=== PATIENT | female | born 1990 | race Caucasian/White ===

== ENCOUNTER 2022-03-26 14:04 | Outpatient (REF) | payer OTHER, SELFPAY ==
--- NOTE | ~2022-03-26 | XR_ITS ---
EXAMINATION: XR FOOT, RIGHT CLINICAL INFORMATION: Pain in right foot Dorsal right foot pain, no injury COMPARISON: None TECHNIQUE: AP, lateral, and oblique views of the right foot. FINDINGS: There is mild soft tissue swelling of the dorsum of the foot. The bones are intact. No fracture. Alignment is anatomic. Joint spaces are maintained. XR/XR foot RT 2V IMPRESSION: No bony abnormality.
== END 2022-03-26 14:05 | disposition home or self-care (01) ==
LOC: HO.XRAY 14:04
PROVIDERS: PCP Internal Medicine; Visit Provider Internal Medicine
DX: M79.671 Pain in right foot (principal)
CPT/HCPCS: 73620

== ENCOUNTER 2022-11-24 09:14 | Outpatient (REF) | payer OTHER, SELFPAY ==
[2022-11-24 12:47] LABS: Influenza A PCR NEGATIVE (Negative); Influenza B PCR NEGATIVE (Negative); Resp Syncy Virus RNA Qual PCR NEGATIVE (Negative); SARS COV2 PCR INHOUSE NEGATIVE (Negative)
== END 2022-11-24 09:15 | disposition home or self-care (01) ==
LOC: HO.LAB 09:14
PROVIDERS: Visit Provider Nurse Practitioner Family
DX: Z20.822 Contact with and (suspected) exposure to COVID-19 (principal); R09.89 Other specified symptoms and signs involving the circulatory and respiratory systems
CPT/HCPCS: 0241U

== ENCOUNTER 2023-07-17 00:30 | Emergency (ER) | payer OTHER, SELFPAY ==
--- NOTE | ~2023-07-17 | XR_ITS ---
EXAMINATION: XR PORTABLE CHEST CLINICAL INFORMATION: Rule out pneumonia COMPARISON: None. TECHNIQUE: AP portable upright view of the chest FINDINGS: Lungs are clear. No consolidation, pneumothorax, or pleural effusion. Cardiac and mediastinal contours are normal. Pulmonary vasculature is unremarkable. Osseous structures are unremarkable. XR/XR chest 1V IMPRESSION: No acute cardiopulmonary findings
[2023-07-17 00:33] VITALS: BP 143/94; PULSE 103; RESP 19; TEMP 36.2; O2SAT 99; BMI 38.7
[2023-07-17 00:58] LABS: IDNOW Serial# 6674DD1D; Strep A Nucleic Acid Negative (Negative)
--- NOTE | 2023-07-17 01:22 | ED.URI ---
HPI - URI/Sore Throat General Chief Complaint: Upper Respiratory Symptoms Stated Complaint: difficulty breathing, coughing Time Seen by Provider: 07/17/23 01:16 Source: patient Mode of arrival: ambulatory Limitations: no limitations History of Present Illness HPI Narrative: Patient comes to the emergency room complaining of URI and cough for about a week. Patient states that the cough got much worse today. Patient complaining now of sore throat. Patient denies fever or chills. Related Data Previous Rx's Medication Instructions Recorded amoxicillin 875 mg-potassium 1 tab PO Q12H 7 days #14 tabs 11/24/22 clavulanate 125 mg tablet benzonatate 100 mg capsule 100 mg PO TID PRN cough #20 caps 11/24/22 prednisone 20 mg tablet 40 mg (2 x 20 mg) PO DAILY 5 days 11/24/22 #10 tabs acetaminophen 500 mg tablet 500 mg PO Q6H PRN fever or pain 07/17/23 #20 tabs benzonatate 100 mg capsule 100 mg PO TID PRN cough #10 caps 07/17/23 ibuprofen 600 mg tablet 600 mg PO TID PRN fever or pain 07/17/23 #20 tabs Allergies Allergy/AdvReac Type Severity Reaction Status Date / Time sulfamethoxazole Allergy Mild hives Verified 11/24/22 08:41 [From Bactrim] trimethoprim [From Bactrim] Allergy Mild hives Verified 11/24/22 08:41 Review of Systems Review of Systems: Constitutional : No Weight loss, No Fever, No Chills, No Night Sweats, No Fatigue, No Malaise ENT/Mouth : No Hearing loss, No Ear Pain, No Nasal Congestion, No Sinus Pain, No Hoarseness, complaining of sore throat, No Rhinorrhea, No Swallowing Difficulty Eyes: No Eye Pain, No Swelling, No Redness, No Foreign Body, No Discharge, No Vision Changes Cardiovascular : No Chest Pain, No SOB, No Dyspnea on Exertion, No Orthopnea, No Edema, No Palpitations Respiratory : Complaining of worsening dry cough, No Wheezing, No Smoke Exposure, No Dyspnea Gastrointestinal : No Nausea, No Vomiting, No Diarrhea, No Constipation, No abdominal Pain, No Hematochezia, No Melena Genitourinary : no irregular bleeding, No Dysuria, No Urinary Frequency, No Hematuria, No Urinary Incontinence, No Urgency, No Flank Pain, No Urinary Flow Changes, No Hesitancy Musculoskeletal : No joint pain, No Myalgias, No Joint Swelling Skin : No Skin Lesions, No rash Neuro : No Weakness, No Numbness, No Paresthesias, No Loss of Consciousness, No Dizziness, No Headache Psych : No Anxiety/Panic, No Depression, No SI/HI/AH/VH, No Social Issues, Heme/Lymph: No Bruising, No Bleeding,No Lymphadenopathy Endocrine : No Polyuria, No Polydipsia, No Temperature Intolerance PMFSH Past Medical History Onset Date is defined in the Problem List Problems that require an onset date and time if occurred within 24 hrs of arrival to the ED Aortic Dissection and Rupture; Neurologic impairment; Cardiopulmonary Arrest; Endotracheal Intubation; Insertion or Replacement of Mechanical Circulatory Assist Device Medical History Obesity (BMI 30-39.9) Generalized anxiety disorder Physical exam Family History Family History Mother No problems noted. Social History Social History Housing: Apartment Alcohol intake: current Patient Tobacco Use Status: Former Tobacco user Tobacco use type: Cigarette Years Smoked: quit 2020 e-Cigarette/Vaping Use: Never Used Second Hand Smoke Exposure: No Advance Directives: No Advance Directives Information Provided: Yes Current occupational status: unemployed Cognitive needs: No Hearing needs: No Vision needs: No Physical Exam Vital Signs: Vital Signs: Last Vital Signs Temp 97.1 F 07/17/23 00:33 Pulse 103 H 07/17/23 00:33 Resp 19 07/17/23 00:33 BP 143/94 H 07/17/23 00:33 Pulse Ox 99 07/17/23 00:33 O2 Del Method Room Air 07/17/23 00:33 BMI result Body Mass Index 38.7 Const: Other: Appearance: Alert. Oriented X3. No acute distress. Eyes: Pupils equal, round and reactive to light. ENT: Pharynx normal. Neck: Normal inspection. Neck supple. No lymph nodes noted. No crepitus CVS: Normal heart rate and rhythm. Pulses normal. Normal S1 and S2 Respiratory: No respiratory distress. Breath sounds normal. No Wheezing. No rales actively coughing, dry Abdomen: Soft and nontender. No rigidity. No distention. Skin: Skin warm and dry. Normal skin color. Normal skin turgor. Extremities: No lower extremity edema. No Lacerations. No Rash Neuro: Oriented X 3. No motor deficit. No sensory deficit. Moving all extremities. No slurred speech. CN 2 through 12 grossly intact Psych: calm, cooperative, normal affect Medical Decision Making Medical Decision Making [facility] Narrative: -for symptomatic relief, patient was given p.o. Tessalon Perles, p.o. Decadron and viscous lidocaine -my interpretation of labs: Strep test negative, negative for influenza, positive for COVID -my interpretation of chest x-ray, no infiltrates. Radiology report not available yet -patient has been symptomatic for approximately 1 week, patient is outside of the treatment for Paxlovid Differential Diagnosis Differential Diagnoses: The differential diagnosis associated with the presentation includes (Bronchitis, COVID, influenza, viral URI) Lab Data [facility] Lab Attestation statement: I reviewed the patient's lab results. Labs: Lab Results 07/17/23 Range/Units 00:41 Influenza Type A (PCR) NEGATIVE (Negative) Influenza Type B (PCR) NEGATIVE (Negative) RSV RNA Qual (PCR) NEGATIVE (Negative) SARS-CoV-2 RNA (RT-PCR) POSITIVE A (Negative) S. pyogenes GrpA MAINE Negative (Negative) Independent Interpretation I performed an independent interpretation of an: Plain X-Ray Discharge Plan Discharge Clinical Impression: COVID-19 Patient Disposition: Home, Self-Care Instructions: COVID-19 (Coronavirus Disease 2019) (ED) Additional Instructions: Please follow-up with your primary care physician tomorrow. If you have any worsening or new symptoms, please return to the emergency room or call 911 Prescriptions: New ibuprofen 600 mg tablet 600 mg PO TID PRN (Reason: fever or pain) Qty: 20 0RF acetaminophen 500 mg tablet 500 mg PO Q6H PRN (Reason: fever or pain) Qty: 20 0RF benzonatate 100 mg capsule 100 mg PO TID PRN (Reason: cough) Qty: 10 0RF No Action amoxicillin-pot clavulanate 875-125 mg tablet 1 tab PO Q12H 7 Days Qty: 14 0RF benzonatate 100 mg capsule 100 mg PO TID PRN (Reason: cough) Qty: 20 0RF prednisone 20 mg tablet 40 mg PO DAILY 5 Days Qty: 10 0RF
[2023-07-17 01:25] LABS: Influenza A PCR NEGATIVE (Negative); Influenza B PCR NEGATIVE (Negative); Resp Syncy Virus RNA Qual PCR NEGATIVE (Negative); SARS COV2 PCR INHOUSE POSITIVE (Negative)
[2023-07-17] MEDS: dexAMETHasone sod phosphate 4 MG/ML VIAL 6 MG IVPUSH (02:14)
[2023-07-17] MEDS: Benzonatate 100 MG CAPSULE PO (02:14)
[2023-07-17] MEDS: Lidocaine HCl Viscous 2 % 15 ML SOLUTION MUCOUS MEM (02:14)
== END 2023-07-17 03:00 | disposition home or self-care (01) ==
PROVIDERS: Emergency Provider Emergency Medicine
DX: U07.1 COVID-19 (principal); R06.02 Shortness of breath; R05.9 Cough, unspecified; Z79.899 Other long term (current) drug therapy
CPT/HCPCS: 0241U; 71045; 87651; 99282; 99283; J1100

== ENCOUNTER 2023-10-05 23:33 | Emergency (ER) | payer OTHER, SELFPAY ==
--- NOTE | ~2023-10-05 | XR_ITS ---
EXAMINATION: XR CHEST CLINICAL INFORMATION: Dyspnea. COMPARISON: Chest radiograph 07/17/2023. TECHNIQUE: 2 views of the chest were obtained. FINDINGS: Normal appearance of the cardiomediastinal silhouette. No focal airspace opacities, pleural effusion or pneumothorax. No pulmonary edema. No acute osseous findings. Visualized upper abdomen is within normal limits. XR/XR chest 2V IMPRESSION: No acute cardiopulmonary findings.
[2023-10-06] VITALS: BP 119/79; PULSE 95; RESP 18; TEMP 37.6; O2SAT 97; BMI 37.8
[2023-10-06 00:30] LABS: IDNOW Serial# 6674DD1D; Strep A Nucleic Acid Negative (Negative)
[2023-10-06 00:58] LABS: Influenza A PCR NEGATIVE (Negative); Influenza B PCR NEGATIVE (Negative); Resp Syncy Virus RNA Qual PCR NEGATIVE (Negative); SARS COV2 PCR INHOUSE NEGATIVE (Negative)
--- NOTE | 2023-10-06 01:27 | ED.URI ---
HPI - URI/Sore Throat General Chief Complaint: Upper Respiratory Symptoms Stated Complaint: possible Covid, sob Time Seen by Provider: 10/06/23 01:10 History of Present Illness HPI Narrative: Patient is a 33-year-old female presents today with coughing congestion upper respiratory symptoms generalized malaise sore throat that has been ongoing for last 2 days. Patient is vaccinated for COVID. Previous history of COVID infection. Positive sore throat. Able to swallow but with pain. No shortness of breath but coughing that is nonproductive. No history diabetes. Related Data Previous Rx's Medication Instructions Recorded amoxicillin 875 mg-potassium 1 tab PO Q12H 7 days #14 tabs 11/24/22 clavulanate 125 mg tablet benzonatate 100 mg capsule 100 mg PO TID PRN cough #20 caps 11/24/22 prednisone 20 mg tablet 40 mg (2 x 20 mg) PO DAILY 5 days 11/24/22 #10 tabs acetaminophen 500 mg tablet 500 mg PO Q6H PRN fever or pain 07/17/23 #20 tabs benzonatate 100 mg capsule 100 mg PO TID PRN cough #10 caps 07/17/23 ibuprofen 600 mg tablet 600 mg PO TID PRN fever or pain 07/17/23 #20 tabs azithromycin 250 mg tablet See Rx Instructions PO .COMPLEX 10/06/23 upper resp infection #6 tabs benzonatate 100 mg capsule 100 mg PO TID PRN cough #20 caps 10/06/23 ibuprofen 400 mg tablet 400 mg PO Q6H PRN pain #20 tabs 10/06/23 Allergies Allergy/AdvReac Type Severity Reaction Status Date / Time sulfamethoxazole Allergy Mild hives Verified 10/06/23 00:00 [From Bactrim] trimethoprim [From Bactrim] Allergy Mild hives Verified 10/06/23 00:00 Review of Systems Review of Systems: Positive coughing congestion upper respiratory symptoms Yes all other systems are reviewed and are negative PMFSH Past Medical History Attestation statement: The following information was validated with the patient. Medical History Obesity (BMI 30-39.9) Generalized anxiety disorder Physical exam Family History Family History Mother No problems noted. Social History Social History Housing: Apartment Alcohol intake: current Patient Tobacco Use Status: Former Tobacco user Tobacco use type: Cigarette Years Smoked: quit 2020 e-Cigarette/Vaping Use: Never Used Second Hand Smoke Exposure: No Advance Directives: No Advance Directives Information Provided: Yes Current occupational status: unemployed Cognitive needs: No Hearing needs: No Vision needs: No Physical Exam Vital Signs: Vital Signs: Last Vital Signs Temp 99.7 F 10/06/23 00:00 Pulse 95 10/06/23 00:00 Resp 18 10/06/23 00:00 BP 119/79 10/06/23 00:00 Pulse Ox 97 10/06/23 00:00 O2 Del Method Room Air 10/06/23 00:00 BMI result Body Mass Index 37.8 Appearance: Alert. Oriented X3. No acute distress. Eyes: Pupils equal, round and reactive to light. ENT: Pharynx normal. Neck: Normal inspection. Neck supple. No lymph nodes noted. No crepitus CVS: Normal heart rate and rhythm. Pulses normal. Normal S1 and S2 Respiratory: No respiratory distress. Breath sounds normal. No Wheezing. No rales Abdomen: Soft and nontender. No rigidity. No distention. good BS x4 Skin: Skin warm and dry. Normal skin color. Normal skin turgor. Extremities: No lower extremity edema. Neurovascular intact to all extremities. No Lacerations. No Rash Neuro: Oriented X 3. No motor deficit. No sensory deficit. Moving all extermities. No slurred speech Medical Decision Making Medical Decision Making [facility] Narrative: Positive coughing congestion upper respiratory symptoms positive generalized malaise. Patient's COVID flu RSV were all negative. My interpretation of patient's chest x-ray was grossly negative for any infiltrate. Patient's strep was negative. Differential Diagnosis Differential Diagnoses: The differential diagnosis associated with the presentation includes Viral infection, strep pharyngitis Admission/Observation Consideration of admission/observation: Escalation of care including admission/observation considered Lab Data [facility] Lab Attestation statement: I reviewed the patient's lab results. Labs: Lab Results 10/06/23 Range/Units 00:13 Influenza Type A (PCR) NEGATIVE (Negative) Influenza Type B (PCR) NEGATIVE (Negative) RSV RNA Qual (PCR) NEGATIVE (Negative) SARS-CoV-2 RNA (RT-PCR) NEGATIVE (Negative) S. pyogenes GrpA MAINE Negative (Negative) Radiology Impression Discussion of test interpretation with radiology: I have reviewed the radiologist's reading. Prescription Management I considered prescription management with: Antibiotic Discharge Plan Discharge Clinical Impression: Upper respiratory infection Patient Disposition: Home, Self-Care Instructions: Upper Respiratory Infection (ED) Prescriptions: New benzonatate 100 mg capsule 100 mg PO TID PRN (Reason: cough) Qty: 20 0RF azithromycin 250 mg tablet See Rx Instructions .ROUTE .COMPLEX Qty: 6 0RF Rx Instructions: take 500 mg today (day 1), then 250 mg for 4 days (days 2-5) ibuprofen 400 mg tablet 400 mg PO Q6H PRN (Reason: pain) Qty: 20 0RF No Action ibuprofen 600 mg tablet 600 mg PO TID PRN (Reason: fever or pain) Qty: 20 0RF acetaminophen 500 mg tablet 500 mg PO Q6H PRN (Reason: fever or pain) Qty: 20 0RF benzonatate 100 mg capsule 100 mg PO TID PRN (Reason: cough) Qty: 10 0RF amoxicillin-pot clavulanate 875-125 mg tablet 1 tab PO Q12H 7 Days Qty: 14 0RF benzonatate 100 mg capsule 100 mg PO TID PRN (Reason: cough) Qty: 20 0RF prednisone 20 mg tablet 40 mg PO DAILY 5 Days Qty: 10 0RF Referrals: Physician,Unknown J [Primary Care Provider] - 10/08/23
[2023-10-06 01:30] VITALS: BP 114/84; PULSE 90; RESP 16; TEMP 37.2; O2SAT 97
[2023-10-06] MEDS: Benzonatate 100 MG CAPSULE PO (01:48)
[2023-10-06 01:52] VITALS: BP 114/84; PULSE 90; RESP 16; TEMP 37.2; O2SAT 97
== END 2023-10-06 01:54 | disposition home or self-care (01) ==
PROVIDERS: Emergency Provider Emergency Medicine Emergency Medical Services
DX: J06.9 Acute upper respiratory infection, unspecified (principal); Z88.2 Allergy status to sulfonamides; Z88.1 Allergy status to other antibiotic agents
CPT/HCPCS: 0241U; 71046; 87651; 99283; 99284

== ENCOUNTER 2024-01-05 10:19 | Outpatient (AMB) | payer OTHER, SELFPAY ==
--- NOTE | 2024-01-05 10:24 | MHC.OFFWIV ---
Intake Vital Signs 01/05/24 10:26 Height 5 ft 1 in Weight 199 lb BMI 37.6 BP 122/84 Blood Pressure Location Lt brachial Position Sitting Pulse 106 H Temp 98.7 F Pulse Oximetry (%) 99 Oxygen Delivery Method Room Air Intake Visit Reasons: EP Cough, Diarrhea, runny nose Intake Note: pt is here c/o cough, vomiting,diarrhea and runny nose, SOB. Started a week ago and has been getting worse Patient Tobacco Use Status: Former Tobacco user Allergies sulfamethoxazole [From Bactrim] Allergy (Mild, Verified 01/05/24 15:57) hives trimethoprim [From Bactrim] Allergy (Mild, Verified 01/05/24 15:57) hives Medication List - Last Reconciled 01/05/24 by Mitch Owusu MD acetaminophen 500 mg PO Q6H PRN albuterol sulfate 90 mcg/actuation 1 inh inhalation QID PRN azithromycin take 500 mg today (day 1), then 250 mg for 4 days (days 2-5) PO benzonatate 100 mg PO TID PRN codeine-guaifenesin 10-100 mg/5 mL 5 mL PO Q6H PRN prednisone 60 mg (3 x 20 mg) PO DAILY Do you need a note to return to daycare/school/sports/work: Yes HPI EP Cough, Diarrhea, runny nose HPI Details Patient presents for a sick visit. Reporting symptoms of sinus congestion, sore throat and difficulty swallowing. Low-grade fever. No family member is sick. No recent travel. Patient reports symptoms of malaise and fatigue. [facility] Medical History Obesity (BMI 30-39.9) Generalized anxiety disorder Physical exam Family History Mother No problems noted. Social History Housing: Apartment Alcohol intake: current Patient Tobacco Use Status: Former Tobacco user Tobacco use type: Cigarette Years Smoked: quit 2020 e-Cigarette/Vaping Use: Never Used Second Hand Smoke Exposure: No Current occupational status: unemployed Cognitive needs: No Hearing needs: No Vision needs: No Physical Exam Vital Signs: Last Vital Signs Temp 98.7 F 01/05/24 10:26 Pulse 106 H 01/05/24 10:26 BP 122/84 01/05/24 10:26 Pulse Ox 99 01/05/24 10:26 Oxygen Delivery Method Room Air 01/05/24 10:26 BMI result Body Mass Index 37.6 Const General: cooperative and healthy appearing Nutritional Appearance: well nourished Orientation/consciousness: patient oriented x3 Limitations: no limitations HEENT Head: Yes normal to inspection Eyes General: appearance normal, both eyes and all related structures Neck Neck: Yes normal visual inspection Chest Chest palpation & inspection: normal palpation of entire chest wall Resp Other: Scattered wheeze bilaterally. Neuro General: patient oriented x3 Assessment & Plan Assessment & Plan (1) URI (upper respiratory infection): Code(s): J06.9 - Acute upper respiratory infection, unspecified Plan: Antibiotics ordered. Increase fluid intake. Tylenol for aches and pains. If symptoms worsen, follow-up here for a recheck. X-rays were personally reviewed by me. Orders: Orders XR chest 2V Today R05.9 - Cough, unspecified AMB Nebulizer Treatment Today J06.9 - Acute upper respiratory infection, unspecified Medications: New codeine-guaifenesin 10-100 mg/5 mL 5 mL PO Q6H PRN 120 mL 0RF allergy symptoms azithromycin take 500 mg today (day 1), then 250 mg for 4 days (days 2-5) PO 6 tabs 0RF prednisone 60 mg (3 x 20 mg) PO DAILY 9 tabs 0RF albuterol sulfate 90 mcg/actuation 1 inh inhalation QID PRN 6.7 grams 1RF shortness of breath or wheezing albuterol sulfate 2.5 mg (3 mL) inhalation ONCE 3 mL 0RF J06.9 - Acute upper respiratory infection, unspecified Discontinued ibuprofen Discontinued Reason: Change Referral Type 600 mg PO TID PRN 20 tabs 0RF fever or pain ibuprofen Discontinued Reason: Doctor's Order 400 mg PO Q6H PRN 20 tabs 0RF pain prednisone Discontinued Reason: Doctor's Order 40 mg (2 x 20 mg) PO DAILY 5 days 10 tabs 0RF Coding Level of Care Code Est Pt Level 4 (64063) Diagnoses URI (upper respiratory infection) J06.9
[2024-01-05 10:26] VITALS: BP 122/84; PULSE 106; TEMP 37.1; O2SAT 99; BMI 37.6
== END 2024-01-05 12:13 | disposition home or self-care (01) ==
PROVIDERS: Visit Provider Internal Medicine
DX: J06.9 Acute upper respiratory infection, unspecified (principal)
CPT/HCPCS: 99214

== ENCOUNTER 2024-01-05 10:51 | Outpatient (REF) | payer OTHER, SELFPAY ==
--- NOTE | ~2024-01-05 | XR_ITS ---
EXAMINATION: XR CHEST 2 VIEW CLINICAL INFORMATION: Cough COMPARISON: 10/06/2023 TECHNIQUE: PA and lateral views of the chest obtained. FINDINGS: The lungs are clear. There are no pleural effusions. The cardiomediastinal silhouette is normal. XR/XR chest 2V IMPRESSION: No acute cardiopulmonary disease.
== END 2024-01-05 10:52 | disposition home or self-care (01) ==
LOC: HO.HMGCX 10:51
PROVIDERS: Visit Provider Internal Medicine
DX: R05.9 Cough, unspecified (principal)
CPT/HCPCS: 71046

== ENCOUNTER 2024-02-03 15:13 | Outpatient (AMB) | payer OTHER, SELFPAY ==
--- NOTE | 2024-02-03 15:17 | MHC.OFFWIV ---
Intake Vital Signs 02/03/24 15:19 Height 5 ft 1 in Weight 198 lb BMI 37.4 BP 124/82 Blood Pressure Location Lt brachial Position Sitting Pulse 73 Pulse Source Pulse Oximeter Temp 98.3 F Temp Source Oral Pulse Oximetry (%) 98 Oxygen Delivery Method Room Air Intake Visit Reasons: EP stomach pain/Diarrhea 1 week Intake Note: pt c/o Stomach pain/ diarrhea x 1 week Patient Tobacco Use Status: Former Tobacco user Allergies sulfamethoxazole [From Bactrim] Allergy (Mild, Verified 02/03/24 15:23) hives trimethoprim [From Bactrim] Allergy (Mild, Verified 02/03/24 15:23) hives Do you need a note to return to daycare/school/sports/work: No HPI HPI Comments History of Present Illness Details She presents to office with abdominal pain Ongoing x 1 week +diarrhea Sharp pains and now having small bowel movements She said throbbing anus Pt denies blood or mucus in stool + watery Sometimes abdominal pain lingers after bowel movements; 9/10 when bad and now it is a 5/10 Pt denies eating out or travel recent. Admits to stress and anxiety She states now pain is minimal but intermittent sharp pains Pt denies abdomina surgeries in past. She denies fever or chills + weak, decreased appetite + nausea without vomiting She admits to a lot of stress with her childrens father she has 2 kids at home Does not have a PCP Does not have a counselor No SI or HI Does admit to drinking alcohol daily PFSH Medical History Obesity (BMI 30-39.9) Generalized anxiety disorder Physical exam Family History Mother No problems noted. Social History Housing: Apartment Alcohol intake: current Patient Tobacco Use Status: Former Tobacco user Tobacco use type: Cigarette Years Smoked: quit 2020 e-Cigarette/Vaping Use: Never Used Second Hand Smoke Exposure: No Current occupational status: unemployed Cognitive needs: No Hearing needs: No Vision needs: No Review of Systems Const Denies chills and Denies fever(s) Card Denies chest pain and Denies dyspnea Resp Denies cough and Denies dyspnea GI Reports abdominal pain, Denies melena, Denies hematochezia, Denies constipation, Reports GI cramping, Reports diarrhea, Reports loose stools, Reports nausea and Denies vomiting Denies hematuria and Denies dysuria Skin/Breast Denies rash Psych Reports other (depression without SI or HI. + alcohol intake) Physical Exam Vital Signs: Last Vital Signs Temp 98.3 F 02/03/24 15:19 Pulse 73 02/03/24 15:19 BP 124/82 02/03/24 15:19 Pulse Ox 98 02/03/24 15:19 Oxygen Delivery Method Room Air 02/03/24 15:19 BMI result Body Mass Index 37.4 General: Non-toxic, NAD. Speaking full sentences. Skin: Warm dry throughout Eye: PERRL, EOMI HENT: Airway patent. Uvula midline. No pharyngeal erythema or edema. No COMMUNICATION INSTRUCTOR. Respiratory: CTA bilaterally. No wheezes, rales or rhonchi Cardiac: RRR. No murmur Abdominal: BS present. Minimal tenderness to deep palpation LLQ without rebound or guarding. No rigidity or acute abdomen. No palpable masses. No abdominal distention or pusatile mass. MSK: Full ROM extremities. Neurology: A/O . No aphasia or facial droop. Gait without abnormality Psych: Good mood and affect. Making eye contact, clear speech. No etoh halitosis Assessment & Plan Assessment & Plan (1) Diarrhea: Code(s): R19.7 - Diarrhea, unspecified Qualifiers: Diarrhea type: unspecified type Qualified Code(s): R19.7 - Diarrhea, unspecified Plan: Patient seen and evaluated. Non-toxic on exam No acute abdomen We discussed diverticulitis diagnosis needing CT scan but symptoms x 1 week, waxing and waning discomfort without fever She will monitor symptoms and any blood, melena, increase pain or fever, go to ED [place] diet Labs and stool sample ordered Imodium OTC prn Patient gave verbal understanding and had no additional questions or concerns at time of discharge All questions answered (2) Stress: Code(s): F43.9 - Reaction to severe stress, unspecified Plan: She admits to depression without SI or HI I discussed with Pat and she went in to talk with pt about resources Will have her ask for PCP appointment up from All questions answered. Orders: Orders Complete Blood Count Auto Diff Today R19.7 - Diarrhea, unspecified GI Panel Today R19.7 - Diarrhea, unspecified Basic Metabolic Panel Today R19.7 - Diarrhea, unspecified Coding Level of Care Code Est Pt Level 3 (56084) Diagnoses Diarrhea, unspecified type R19.7 Diarrhea type: unspecified type Stress F43.9
[2024-02-03 15:19] VITALS: BP 124/82; PULSE 73; TEMP 36.8; O2SAT 98; BMI 37.4
== END 2024-02-03 16:14 | disposition home or self-care (01) ==
PROVIDERS: Visit Provider Physician Assistant
DX: R19.7 Diarrhea, unspecified (principal); F43.9 Reaction to severe stress, unspecified
CPT/HCPCS: 99213

== ENCOUNTER 2024-02-09 14:18 | Emergency (ER) | payer OTHER, SELFPAY ==
[2024-02-09 15:07] VITALS: BP 141/92; PULSE 93; RESP 16; TEMP 36.6; O2SAT 99; BMI 37.3
[2024-02-09 16:03] LABS: MANUAL DIFF FLAG NO
[2024-02-09 16:04] LABS: Basophils Percent Auto 0.5 % (0-2); Eosinophils Absolute Auto 0.1 X10*3/uL (0.0-0.4); Eosinophils Percent Auto 0.8 % (0-4); Hematocrit 39.7 % (37.0-47.0); Hemoglobin 13.7 g/dl (12.0-16.0); Imm Gran Abs Auto 0.02 X10*3/uL (0.00-0.03); Imm Gran Pct Auto 0.3 % (0.0-0.4); Lymphocytes Absolute Auto 2.7 X10*3/uL (1.2-4.9); Lymphocytes Percent Auto 45.5 % (20-40); Mean Corpuscular HGB Conc 34.5 g/dl (31.0-35.0); Mean Corpuscular Hemoglobin 31.9 pg (27.0-33.0); Mean Corpuscular Volume 92.3 fL (80.0-98.0); Mean Platelet Volume 10.1 fL (9.4-12.3); Monocytes Absolute Auto 0.4 X10*3/uL (0.1-1.2); Monocytes Percent Auto 6.1 % (2-11); Neutrophils Absolute Auto 2.8 x10*3/uL (2.0-8.3); Neutrophils Percent Auto 46.8 % (45-73); Platelet Count 279 X10*3/uL (160-400); Red Cell Distribution Width 14.7 % (11.0-16.0)
[2024-02-09 16:23] LABS: Alanine Aminotransferase 39 U/L (0-31); Albumin Level 4.5 g/dL (3.5-5.0); Alkaline Phosphatase 91 U/L (39-117); Anion Gap 13 (12-20); Aspartate Amino Transferase 51 U/L (5-31); Bilirubin Total 0.3 mg/dL (0.0-1.0); Blood Urea Nitrogen 8 mg/dL (9-16); Calcium 9.4 mg/dL (8.4-10.2); Carbon Dioxide 25 mmol/L (22-29); Chloride 105 mmol/L (96-108); Creatinine Clr Calc Pharmacy 94.3; Estimated Glomerular Filt Rate > 60; Glucose Random 110 mg/dL (60-115); Lipase 15 U/L (8-78); Magnesium 1.8 mg/dL (1.6-2.6); Potassium 4.3 mmol/L (3.3-5.1); Sodium 139 mmol/L (135-145); Total Protein 7.2 g/dL (6.5-8.0)
[2024-02-09 16:25] LABS: HCG Quantitative < 2 mIU/mL
[2024-02-09 16:42] LABS: Influenza A PCR NEGATIVE (Negative); Influenza B PCR NEGATIVE (Negative); Resp Syncy Virus RNA Qual PCR NEGATIVE (Negative); SARS COV2 PCR INHOUSE NEGATIVE (Negative)
[2024-02-09 20:13] VITALS: BP 138/85; PULSE 85; RESP 20; TEMP 36.4; O2SAT 100
--- NOTE | 2024-02-09 21:44 | ED.ABDPAIN ---
HPI - Abdominal Pain General Chief Complaint: Abdominal Pain Stated Complaint: Abd pain 1 week, diarrhea Time Seen by Provider: 02/09/24 21:38 Source: patient Mode of arrival: ambulatory Limitations: no limitations History of Present Illness ED Provider: Dr. Espinoza HPI narrative: Patient started with sore throat then developed NVD for the past week. She cant stop vomiting and has constant reflux MD elicited complaint: abdominal pain Onset (ago): week(s) Related Data Previous Rx's ?Medication ?Instructions ?Recorded albuterol sulfate 90 mcg/actuation 1 inh inhalation QID PRN shortness 01/05/24 aerosol inhaler of breath or wheezing #6.7 grams ondansetron 4 mg disintegrating 4 mg PO Q8H 4 days #12 tabs 02/09/24 tablet famotidine 10 mg tablet 10 mg PO DAILY #30 tabs 02/18/24 escitalopram oxalate 10 mg tablet 10 mg PO DAILY #30 tabs 02/25/24 (Lexapro) magnesium glycinate 100 mg PO BID #60 caps 02/25/24 naltrexone 50 mg tablet 50 mg PO DAILY #30 tabs 02/25/24 thiamine HCl (vitamin B1) 100 mg 100 mg PO DAILY #30 tabs 02/25/24 tablet Allergies Allergy/AdvReac Type Severity Reaction Status Date / Time sulfamethoxazole Allergy Mild hives Verified 02/18/24 14:45 [From Bactrim] trimethoprim [From Bactrim] Allergy Mild hives Verified 02/18/24 14:45 Review of Systems Review of Systems Yes all other systems are reviewed and are negative Denies Sensory deficit (Neuro) [facility] Past Medical History Medical History (Updated 02/25/24 @ 16:32 by Huyen Ulrich APRN) Generalized anxiety disorder Obesity (BMI 30-39.9) Physical exam Family History Family History Mother No problems noted. Social History Social History Housing: Apartment Alcohol intake: current Patient Tobacco Use Status: Former Tobacco user Tobacco use type: Cigarette Years Smoked: quit 2020 e-Cigarette/Vaping Use: Never Used Second Hand Smoke Exposure: No Current occupational status: unemployed Cognitive needs: No Hearing needs: No Vision needs: No Physical Exam ED Vital Signs: Vital Signs - 24 hr 02/09/24 15:07 02/09/24 20:13 Temperature 97.9 F 97.6 F Pulse Rate 93 85 Respiratory Rate 16 20 Blood Pressure 141/92 H 138/85 Pulse Oximetry 99 100 Oxygen Delivery Method Room Air Room Air BMI result Body Mass Index 37.3 Const General: healthy appearing Nutritional Appearance: average body habitus Orientation/consciousness: oriented to person and patient oriented x3 Limitations: no limitations HENMT Head: Yes normal to inspection Ears: external ears normal General nose exam: Normal external nose present Mouth: Normal oral and palatal mucosa present and oropharynx normal Throat: Yes posterior oropharynx normal Eyes General: appearance normal, both eyes and all related structures Neck Neck: Yes normal visual inspection Chest Chest palpation & inspection: normal inspection of the chest Resp Auscultation: clear to auscultation bilaterally Cardio Jugular venous distension: no JVD Rate: regular rate Rhythm: regular rhythm Heart sounds: S1 normal heart sound present and S2 normal heart sound present GI Inspection: Yes normal to inspection Palpation (GI): Soft to palpation, nontender and No hepatosplenomegaly present Auscultation: normal bowel sounds General: Yes no CVA tenderness Back/Spine/Pelvis Back: no CVA tenderness Skin General skin exam: no rashes or lesions noted Neuro General: oriented to person and patient oriented x3 Cranial nerves: Yes CN's II-XII intact bilaterally Motor exam (neuro): 5/5 motor strength present throughout Sensory Exam: No Sensory deficit (Neuro) Extrem General: Yes normal to inspection Psych Appearance: grossly normal Course Reevaluation(s) Reevaluation #1: patient with likely viral illness now with vomiting and diarrhea, will treat for symptoms Time: 21:46 Medical Decision Making Differential Diagnosis Differential Diagnoses: The differential diagnosis associated with the presentation includes (gastroenteritis, viral illness, flu, covid, diarrhea) Admission/Observation Consideration of admission/observation: Escalation of care including admission/observation considered (upon arrival patient considered for admission) Lab Data 02/09/24 15:57 02/09/24 15:57 Labs: Lab Results 02/09/24 Range/Units 15:57 WBC 6.0 (4.8-10.8) X10*3/uL RBC 4.30 (4.20-5.50) X10*6/uL Hgb 13.7 (12.0-16.0) g/dl Hct 39.7 (37.0-47.0) % MCV 92.3 (80.0-98.0) fL MCH 31.9 (27.0-33.0) pg MCHC 34.5 (31.0-35.0) g/dl RDW 14.7 (11.0-16.0) % Plt Count 279 (160-400) X10*3/uL MPV 10.1 (9.4-12.3) fL Immature Gran % (Auto) 0.3 (0.0-0.4) % Neut % (Auto) 46.8 (45-73) % Lymph % (Auto) 45.5 H (20-40) % [place] % (Auto) 6.1 (2-11) % Eos % (Auto) 0.8 (0-4) % Baso % (Auto) 0.5 (0-2) % Lymph # (Auto) 2.7 (1.2-4.9) X10*3/uL [place] # (Auto) 0.4 (0.1-1.2) X10*3/uL Eos # (Auto) 0.1 (0.0-0.4) X10*3/uL Baso # (Auto) 0.0 (0.0-0.2) X10*3/uL Abs Immat Gran (auto) 0.02 (0.00-0.03) X10*3/uL Absolute Neuts (auto) 2.8 (2.0-8.3) x10*3/uL Absolute Nucleated RBC 0.000 (0.0-0.012) X10*3/uL Nucleated RBC % (auto) 0.0 (0.0-0.2) /100WBC Sodium 139 (135-145) mmol/L Potassium 4.3 (3.3-5.1) mmol/L Chloride 105 (96-108) mmol/L Carbon Dioxide 25 (22-29) mmol/L Anion Gap 13 (12-20) BUN 8 L (9-16) mg/dL Creatinine 0.88 (0.5-1.4) mg/dL Estim Creat Clear Calc 94.3 Estimated GFR > 60 Random Glucose 110 (60-115) mg/dL Calcium 9.4 (8.4-10.2) mg/dL Magnesium 1.8 (1.6-2.6) mg/dL Total Bilirubin 0.3 (0.0-1.0) mg/dL AST 51 H (5-31) U/L ALT 39 H (0-31) U/L Alkaline Phosphatase 91 (39-117) U/L Total Protein 7.2 (6.5-8.0) g/dL Albumin 4.5 (3.5-5.0) g/dL Lipase 15 (8-78) U/L Beta HCG, Quant < 2 mIU/mL Influenza Type A (PCR) NEGATIVE (Negative) Influenza Type B (PCR) NEGATIVE (Negative) RSV RNA Qual (PCR) NEGATIVE (Negative) SARS-CoV-2 RNA (RT-PCR) NEGATIVE (Negative) External Record Review External record reviewed: Outpatient record Tests considered The following testing was considered but not selected: CT of abdomen considered but patient appearing well, slight bump in her lfts will not image at this time Prescription Management I considered prescription management with: Antibiotic (no bacterial illness seen) Medications Administered Discontinued Medications Generic Name Dose Route Start Last Admin Trade Name Freq PRN Reason Stop Dose Admin Al Hydroxide/Mg Hydroxide 30 ml 02/09/24 21:43 02/09/24 21:50 Magnesium Hydrox/Alum Hydrox 30 Ml Oral.Susp PO 02/09/24 21:44 30 ml ONCE ONE Administration Belladonna Alkaloids/Phenobarbital 10 ml 02/09/24 21:43 02/09/24 21:50 Phenobarb/Hyoscy/Atropine/Scop 10 Ml Elixir PO 02/09/24 21:44 10 ml ONCE ONE Administration Lidocaine HCl 15 ml 02/09/24 21:43 02/09/24 21:50 Lidocaine Hcl Viscous 2 % 15 Ml Solution MUCOUS MEM 02/09/24 21:44 15 ml ONCE ONE Administration Ondansetron HCl 4 mg 02/09/24 21:43 02/09/24 21:50 Ondansetron Odt 4 Mg Tab.Rapdis TRANSLINGU 02/09/24 21:44 4 mg ONCE ONE Administration Discharge Plan Discharge Clinical Impression: Gastroenteritis, Viral illness Patient Disposition: Home, Self-Care Instructions: Gastroenteritis (ED), Acute Nausea and Vomiting (ED), Acute Diarrhea (ED) Additional Instructions: clear liquid diet for 3 days until diarrhea stops Prescriptions: New ondansetron 4 mg tablet,disintegrating 4 mg PO Q8H 4 Days Qty: 12 0RF No Action albuterol sulfate 2.5 mg /3 mL (0.083 %) solution for nebulization 2.5 mg inhalation ONCE Qty: 3 0RF albuterol sulfate 90 mcg/actuation HFA aerosol inhaler 1 inh inhalation QID PRN (Reason: shortness of breath or wheezing) Qty: 6.7 1RF famotidine 10 mg tablet 10 mg PO DAILY Qty: 30 1RF naltrexone 50 mg tablet 50 mg PO DAILY Qty: 30 0RF escitalopram oxalate [Lexapro] 10 mg tablet 10 mg PO DAILY Qty: 30 0RF magnesium glycinate 100 mg magnesium capsule 100 mg PO BID Qty: 60 0RF thiamine HCl (vitamin B1) 100 mg tablet 100 mg PO DAILY Qty: 30 0RF Referrals: Physician,Unknown J [Primary Care Provider] - 5 days Interventions: ED Discharge Assessment Last Done: 02/09/24 21:55 Discharge Date/Time: 02/09/24 21:55 Print Language: Belarusian
[2024-02-09] MEDS: Ondansetron ODT 4 MG TAB.RAPDIS TRANSLINGU (21:50)
[2024-02-09] MEDS: Magnesium Hydrox/Alum Hydrox 30 ML ORAL.SUSP PO (21:50)
[2024-02-09] MEDS: PHENobarb/Hyoscy/Atropine/Scop 10 ML ELIXIR PO (21:50)
[2024-02-09] MEDS: Lidocaine HCl Viscous 2 % 15 ML SOLUTION MUCOUS MEM (21:50)
[2024-02-09 21:55] VITALS: BP 137/84; PULSE 90; RESP 18; TEMP 37.1; O2SAT 99
== END 2024-02-09 21:55 | disposition home or self-care (01) ==
PROVIDERS: Physician Assistant Medical; Emergency Provider Emergency Medicine
DX: K52.9 Noninfective gastroenteritis and colitis, unspecified (principal); B34.9 Viral infection, unspecified; J02.9 Acute pharyngitis, unspecified; R11.10 Vomiting, unspecified; K21.9 Gastro-esophageal reflux disease without esophagitis; R10.9 Unspecified abdominal pain; Z03.818 Encounter for observation for suspected exposure to other biological agents ruled out
CPT/HCPCS: 0241U; 80053; 83690; 83735; 84702; 85025; 99283

== ENCOUNTER 2024-02-18 14:43 | Outpatient (AMB) | payer OTHER, SELFPAY ==
--- NOTE | 2024-02-18 14:44 | A.OFFPC_ITS ---
Vital Signs 02/18/24 14:45 Height 5 ft 1 in Weight 197 lb BMI 37.2 BP 120/88 Blood Pressure Location Lt brachial Position Sitting Pulse 81 Pulse Source Pulse Oximeter Pulse Oximetry (%) 99 Oxygen Delivery Method Room Air Intake Visit Reasons: [facility] [place] 02/08 Abd pain 1 week, diarrhea Intake Note: Patient is here to follow-up after a visit the emergency department at [facility] [place] on 02/09/2024 Facer Operator Required: No Allergies sulfamethoxazole [From Bactrim] Allergy (Mild, Verified 02/18/24 14:45) hives trimethoprim [From Bactrim] Allergy (Mild, Verified 02/18/24 14:45) hives Medication List - Last Reconciled 02/18/24 by Lori Driscoll PA-C acetaminophen 500 mg PO Q6H PRN albuterol sulfate 90 mcg/actuation 1 inh inhalation QID PRN famotidine 10 mg PO DAILY ondansetron 4 mg PO Q8H 4 days Tobacco use date assessed: 02/18/24 HPI [facility] [place] 02/08 Abd pain 1 week, diarrhea HPI Details 33 year old female with no past history last seen by Dr. Bustillo 03/2022 coming in for hospital follow up. In review of the notes, patient was seen in [facility] [place] ED 02/09/2024 for vomiting and abdominal pain, was found to have elevated liver function tests. Patient was diagnosed with gastritis and discharged home. Patient states for the past several weeks she has been having abdominal pain and diarrhea while eating along with increased acid reflux with certain foods. She does mentioned she has been trying a bland diet and finds when she has these foods her symptoms are decreased. She has been taking Protonix for her acid reflux and states this has been helping and Imodium for the diarrhea. When she eats fatty or more flavor full foods she does note the diarrhea worsens as well as abdominal pain. She also mentioned she drinks alcohol daily as a way to cope with anxiety. [facility] Medical History Obesity (BMI 30-39.9) Generalized anxiety disorder Physical exam Family History Mother No problems noted. Social History Housing: Apartment Alcohol intake: current Patient Tobacco Use Status: Former Tobacco user Tobacco use type: Cigarette Years Smoked: quit 2020 e-Cigarette/Vaping Use: Never Used Second Hand Smoke Exposure: No Current occupational status: unemployed Cognitive needs: No Hearing needs: No Vision needs: No Questionnaire Thrive Questionnaire Date Thrive assessed: 02/18/24 I am a: Patient What is your living situation today?: I have a steady place to live Within the past 12 months, did the food you bought not last and you didn't have the money to get more?: Never true Within the past 12 months, did you worry whether your food would run out before you got money to buy more?: Never true Do you have trouble paying for medicines?: No Do you have trouble getting transportation to medical appointments?: No Do you have trouble paying your heating and electricity bill?: No Do you have trouble taking care of your child, family member or friend?: No Do you have trouble with day-to-day activities such as bathing, preparing meals, shopping, managing finances, etc.?: No Are you currently unemployed and looking for a job?: No Are you interested in more education?: No Please select the resources that you would like help with: None Currently or been in a relationship where the following occur: No concerns reported THRIVE Score: 0 AUDIT C Alcohol Use Questionnaire (AUDIT-C) 1. How often do you have a drink containing alcohol?: Monthly or less 2. How many drinks containing alcohol do you have on a typical day when you are drinking?: 1 or 2 (0) 3. How often do you have six or more drinks on one occasion?: Never Total Score: 1 Score Reviewed/Action Taken: Yes BEN-7 AMB Questionnaire BEN-7 Date BEN - 7 assessed: 03/25/22 Source: Developed by Drs. Saurabh Daniels, Abi Guerra, David Parada and colleagues, with an educational ricci from [employer]. Review of Systems Const Denies body aches, Denies chills, Denies fever(s), Denies headache(s) and Denies poor appetite Eyes Reports no additional complaints ENT Denies dizziness and Denies headache(s) Card Denies chest pain, Denies lightheadedness and Denies dyspnea Resp Denies dyspnea GI Details: Patient has nausea vomiting and diarrhea along with abdominal pain when consuming certain foods. Denies constipation, Reports dyspepsia and Reports heartburn Reports no additional complaints Musc Reports no additional complaints and Denies abnormal gait Skin/Breast Reports system reviewed and no additional complaints, except as documented Neuro Denies abnormal gait, Denies dizziness and Denies headache(s) Psych Reports as per HPI Physical exam (Primary Care) Vital Signs: Last Vital Signs Pulse 81 02/18/24 14:45 BP 120/88 02/18/24 14:45 Pulse Ox 99 02/18/24 14:45 Oxygen Delivery Method Room Air 02/18/24 14:45 BMI result Body Mass Index 37.2 Tobacco/Smoking Status: Tobacco use Status Tobacco use date assessed 02/18/24 02/18/24 14:51 Patient Tobacco Use Status Former Tobacco user 02/18/24 14:51 Tobacco use type Cigarette 02/18/24 14:51 e-Cigarette/Vaping Use Never Used 02/18/24 14:51 Thrive Assessment: Date of Thrive Assessment Date Thrive assessed 02/18/24 02/18/24 14:51 Currently or been in a relationship where the following occur: No concerns reported Const General: cooperative, healthy appearing, comfortable and no acute distress Orientation/consciousness: patient oriented x3 HENMT Head: Yes normocephalic Ears: hearing grossly normal bilaterally General nose exam: Normal external nose present Eyes General: appearance normal, both eyes and all related structures Conjunctivae: conjunctivae normal Neck Neck: Yes full ROM and Yes no lymphadenopathy Resp Effort & Inspection: normal respiratory effort Auscultation: clear to auscultation bilaterally, no crackles, no rales, no rhonchi and no wheezes Cardio Rate: regular rate Rhythm: regular rhythm GI Palpation (GI): Soft to palpation, not firm, nontender, no guarding and not rigid Skin General skin exam: no rashes or lesions noted Neuro General: patient oriented x3 Gait exam (Neuro): Normal gait present Extrem General: Yes normal to inspection, Yes full ROM and No edema Psych Affect: normal affect Attitude: cooperative Insight: Good insight present (Psych) Judgement: Good judgement present (Psych) Assessment and Plan Assessment & Plan (1) Diarrhea: Code(s): R19.7 - Diarrhea, unspecified Qualifiers: Diarrhea type: unspecified type Qualified Code(s): R19.7 - Diarrhea, unspecified Plan: Patient has been having diarrhea when eating certain foods. Recommended a bland diet for bowel rest for the next several weeks. Patient was given informational packet about low FODMAP diet and foods to avoid. We will follow up in 2 weeks f or re-evaluation and can consider adding and different foods at that time. If symptoms worsen or do not improve please reach out to the office. (2) Anxiety: Code(s): F41.9 - Anxiety disorder, unspecified Plan: Patient states she has increased anxiety and mainly uses alcohol as a means of coping. She has seen a counselor in the past and did not find this helpful and is interested in medication. [facility]. (3) Elevated LFTs: Code(s): R79.89 - Other specified abnormal findings of blood chemistry Plan: Patient was found to have elevated liver function tests while in the ER which could be related to alcohol intake. She drinks around 2 shots every night. Advised patient to decrease the amount of alcohol she consumes however there is concern for withdrawal and if she begins to have symptoms to present to the ER. We will order for abdominal ultrasound for further evaluation. (4) GERD (gastroesophageal reflux disease): Code(s): K21.9 - Gastro-esophageal reflux disease without esophagitis Plan: Patient has a history of GERD during and was previously on famotidine. She mentions the Protonix that was given to her by the ER was helpful however she did find famotidine more helpful and prescription was sent today. Avoid trigger foods such as citrus, tomato products, soda, caffeine, spicy foods and other foods that may be irritating to your stomach. Avoid laying flat 3-4 hours after eating and elevate the head of the bed 30 degrees to prevent acid from moving into the esophagus. Plan This note was constructed using voice recognition software. While every effort has been made to ensure accuracy and childrens club attendant, still areas may have been included sometimes these areas may affect the content or meeting of the given symptoms. Total time spent caring for the patient today was 30 minutes. This includes time spent before the visit reviewing the chart, time spent during the visit, and time spent after the visit and documentation. Orders: Orders US abdomen complete Today R79.89 - Other specified abnormal findings of blood chemistry Referrals Psychiatry Outpatient Consultation Service F41.9 - Anxiety disorder, unspecified, R19.7 - Diarrhea, unspecified Medications: New famotidine 10 mg PO DAILY 30 tabs 1RF Discontinued pantoprazole (Protonix) Discontinued Reason: Patient no longer taking 40 mg PO DAILY 20 tabs 0RF Coding Level of Care Code Est Pt Level 4 (41223) Diagnoses Diarrhea, unspecified type R19.7 Diarrhea type: unspecified type Anxiety F41.9 Elevated LFTs R79.89 GERD (gastroesophageal reflux disease) K21.9
[2024-02-18 14:45] VITALS: BP 120/88; PULSE 81; O2SAT 99; BMI 37.2
== END 2024-02-18 15:43 | disposition home or self-care (01) ==
PROVIDERS: PCP Internal Medicine
DX: R19.7 Diarrhea, unspecified (principal); F41.9 Anxiety disorder, unspecified; R79.89 Other specified abnormal findings of blood chemistry; K21.9 Gastro-esophageal reflux disease without esophagitis
CPT/HCPCS: 99214

== ENCOUNTER 2024-02-25 15:02 | Outpatient (AMB) | payer OTHER, SELFPAY ==
--- NOTE | 2024-02-25 15:04 | A.OFFPSYCH_ITS ---
Intake Intake Visit Reasons: consult Appointment Clerk Required: No Allergies sulfamethoxazole [From Bactrim] Allergy (Mild, Verified 02/18/24 14:45) hives trimethoprim [From Bactrim] Allergy (Mild, Verified 02/18/24 14:45) hives Medication List - Last Reconciled 02/25/24 by Huyen Ulrich, GIFT MANAGER acetaminophen 500 mg PO Q6H PRN albuterol sulfate 90 mcg/actuation 1 inh inhalation QID PRN famotidine 10 mg PO DAILY ondansetron 4 mg PO Q8H 4 days HPI- Psychiatric Chief Complaint: consult HPI Narrative: referrred by PCP after pt in ED for abdominal discomfort and had elevated LFTs; pt reported using etoh for coping with depression and anxiety. Pt reports significant anxiety and depression since 2nd son born. she has felt sad and anxious every day. 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 her partner is not working and not helping much with chidren or household. Pt has long hx of trauma and abandonment. Her father left the family and did not provide for her or brother; her mother was addicted to drugs and largely unavailable; at times had strange people in the house Pt says she witnessed a lot of anger. they often missed holidays and birthdays because mother spent money on drugs and BF. Pt stateed working ag 16 and had own apartment age 19. She started using alcohol age 18 but did nt start drinking daily until 10 yrs ago when her mother from overdose. Pt states she has stopped using alcohol many times throughout the years and has not had withdrawal symptoms; she has been without alcohol for 2 days now. Pt PHQ9= 17 and GAD7 = 17. She also describes symmtoms conistent with ADHD and reports she was told she had ADHD as child but never treated for it. she tried to go to [facility] 3 times but could not concentrate or finsih taks. She left in 12th grade but went oon to get GED at [facility], Past Psychiatric History: brief therapy as child; trials of clonazepam age 19 and sertraline after sons born but made her heart race. No IPLOC Subjective Subjective Subjective Medication Compliance: Yes Side effects from medications: No Review of Systems Medical Review of Systems: unchanged Mental Status Exam Mental Status Exam Patient Appearance: Well Grooomed and Appropriate Patient Orientation: Person, Place, Time and Situation Level of Consciousness: Awake and Appropriate Patient Behavior: Appropriate, Cooperative and Good Eye Contact Mood Description: Anxious and Sad Affect Description: Anxious and Sad Patient Cognition Impaired: No Ability to Follow Directions: Good Speech Pattern: Clear Memory Description: Intact Hallucinations: None Delusions: Not Present Thought Process: Intact Thought Content: positive for Intact Judgement: Good Assessment and Plan Assessment & Plan (1) Generalized anxiety disorder: Status: Acute Code(s): F41.1 - Generalized anxiety disorder (2) Major depressive disorder, recurrent episode with anxious distress: Status: Acute Code(s): F33.9 - Major depressive disorder, recurrent, unspecified (3) Alcohol abuse: Status: Acute Code(s): F10.10 - Alcohol abuse, uncomplicated Plan rule out ADHD and rule out PTSD start lexapro 10mg daily for BEN and MDD naltrexone for alcohol cravings magnesium and thiamine to support mood/cognition Medications: New naltrexone 50 mg PO DAILY 30 tabs 0RF magnesium glycinate 100 mg PO BID 60 caps 0RF escitalopram oxalate (Lexapro) 10 mg PO DAILY 30 tabs 0RF thiamine HCl (vitamin B1) 100 mg PO DAILY 30 tabs 0RF Discontinued acetaminophen Discontinued Reason: Doctor's Order 500 mg PO Q6H PRN 20 tabs 0RF fever or pain Counseling and coordination of Care Pt. Self Management counseling: Maintenance-social rhythm, Mod caffeine/ETOH intake, Sleep hygiene, Behavior activation and General coping skills Medication management counseling: Effectiveness, Side effects, Dosing range, Duration, Drug interaction and Adherence Diagnosis and Prognosis Counseling: Accuracy of diagnosis, Prognosis over time, Impact of diagnosis on life functions, Impact of family relationship, Problematic behaviors secondary to diagnosis and Adequacy of current interventions Details: I spent [] minutes reviewing the record, seeing the patient and documenting in the medical record. Counseling provided to the patient/caregiver as outlined below. Addressed patient/caregiver concerns regarding current medication regime including effective adherence. Addressed patient/caregiver concerns regarding diagnosis and prognosis including accuracy of diagnosis, prognosis over time, impact of diagnosis. Addressed patient/caregiver concerns regarding impact of recent stressors. [facility] Medical History (Updated 02/25/24 @ 16:32 by Huyen Ulrich APRN) Generalized anxiety disorder Obesity (BMI 30-39.9) Physical exam Family History Mother No problems noted. Social History Housing: Apartment Alcohol intake: current Patient Tobacco Use Status: Former Tobacco user Tobacco use type: Cigarette Years Smoked: quit 2020 e-Cigarette/Vaping Use: Never Used Second Hand Smoke Exposure: No Current occupational status: unemployed Cognitive needs: No Hearing needs: No Vision needs: No Social History: lives with partner ans 2 children age 3 and 2; 3 yo is autistic. 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 Substance History: etoh daily 2 drinks at night Trauma History: yes Coding Level of Care Code Psych Diag Eval w/Med (76076) Diagnoses Generalized anxiety disorder F41.1 Major depressive disorder, recurrent episode with anxious distress F33.9 Alcohol abuse F10.10
== END 2024-02-25 15:45 | disposition home or self-care (01) ==
LOC: HO.HOP 15:02
PROVIDERS: PCP Internal Medicine; Visit Provider Clinical Nurse Specialist Psychiatric/Mental Health
DX: F41.1 Generalized anxiety disorder (principal); F33.9 Major depressive disorder, recurrent, unspecified; F10.10 Alcohol abuse, uncomplicated
CPT/HCPCS: 90792

== ENCOUNTER → 2024-02-25 15:02 | Outpatient (BNVA) | payer OTHER, SELFPAY | PROVIDERS: PCP Internal Medicine; Visit Provider Clinical Nurse Specialist Psychiatric/Mental Health | DX: F33.9 Major depressive disorder, recurrent, unspecified (principal); F41.1 Generalized anxiety disorder; F10.10 Alcohol abuse, uncomplicated | CPT/HCPCS: 90792 ==

== ENCOUNTER 2024-03-14 09:03 | Outpatient (REF) | payer OTHER, SELFPAY ==
--- NOTE | ~2024-03-14 | US_ITS ---
EXAMINATION: US ABDOMEN COMPLETE CLINICAL INFORMATION: Specified abnormal findings of blood chemistry. Elevated LFTs. COMPARISON: None available. TECHNIQUE: Real-time imaging of the abdominal viscera. FINDINGS: PANCREAS: Normal. ABDOMINAL AORTA: The proximal, mid, and distal segments are normal in caliber. INFERIOR VENA CAVA: Visualized portions are normal. LIVER: The liver is enlarged measuring over 18 cm in greatest length. The liver contour is normal. There is diffuse increased liver parenchymal echogenicity, consistent with hepatic steatosis. No focal hepatic lesion. There is no intrahepatic biliary duct dilatation seen. GALLBLADDER: Normal. The gallbladder is physiologically distended without evidence of stones, sludge, polyps, wall thickening or pericholecystic fluid. COMMON BILE DUCT: Normal in caliber measuring 0.23 cm in diameter. RIGHT KIDNEY: Normal. No hydronephrosis. No renal calculi or focal parenchymal lesions. The kidney measures 10.5 cm in maximum dimension. LEFT KIDNEY: No hydronephrosis. Prominent extrarenal pelvis. No renal calculi or focal parenchymal lesions. The kidney measures 12.0 cm in maximum dimension. SPLEEN: The spleen measures 14.3 cm in maximum dimension. FREE FLUID: None. US/US abdomen complete IMPRESSION: 1. Enlarged fatty liver. 2. Mild splenomegaly. Electronically signed by: Juan Diego Torrez MD 03/19/2024 12:35 PM EDT
== END 2024-03-14 09:04 | disposition home or self-care (01) ==
LOC: HO.HMGCX 09:03
PROVIDERS: PCP Internal Medicine
DX: R79.89 Other specified abnormal findings of blood chemistry (principal)
CPT/HCPCS: 76700

== ENCOUNTER 2024-03-21 15:23 | Outpatient (AMB) | payer OTHER, SELFPAY ==
[2024-03-21 15:25] VITALS: BP 124/68; PULSE 72; O2SAT 97; BMI 35.3
--- NOTE | 2024-03-21 15:25 | MHC.PC.OV ---
Vital Signs 03/21/24 15:25 Height 5 ft 1 in Weight 187 lb BMI 35.3 BP 124/68 Blood Pressure Location Lt brachial Position Sitting Pulse 72 Pulse Source Pulse Oximeter Pulse Oximetry (%) 97 Oxygen Delivery Method Room Air Intake Visit Reasons: annual exam Behavioral Therapist Required: No Accompanied by: Self / Same As Patient Allergies sulfamethoxazole [From Bactrim] Allergy (Mild, Verified 03/21/24 15:38) hives trimethoprim [From Bactrim] Allergy (Mild, Verified 03/21/24 15:38) hives Medication List - Last Reconciled 03/21/24 by Lori Driscoll PA-C albuterol sulfate 90 mcg/actuation 1 inh inhalation QID PRN escitalopram oxalate (Lexapro) 10 mg PO DAILY famotidine 10 mg PO DAILY magnesium glycinate 100 mg PO BID naltrexone 50 mg PO DAILY ondansetron 4 mg PO Q8H 4 days thiamine HCl (vitamin B1) 100 mg PO DAILY Tobacco use date assessed: 02/18/24 Dental Screening Dental Screen Date: 03/21/24 Did you have a dental visit in the last 12 months?: No Did you have a dental problem in the last 6 months where you did not have access to dental care?: No Was dental information given to patient?: Patient has dentist HPI annual exam HPI Details 33-year-old female with no documented past medical history last seen February 2024 coming in for annual exam. Patient was seen by [facility] outpatient psychiatric clinic 02/25/2024 patient was started on Lexapro and naltrexone along with magnesium and thiamine. Patient states she was seen by the outpatient psychiatric clinic and has been doing well on the medications prescribed to her. She is feeling much more like herself and has been motivated to exercise and eat healthy and has a noted 10 lb weight loss since her last visit. She has been working on incorporating whole foods into her diet and eliminating processed foods. Has been on naltrexone and has not had a drink in around 3 weeks and has been feeling good without any signs or symptoms of withdrawal. Does mentioned she missed her last appointment with the psychiatric clinic and is going to reschedule. [facility]MERLY [facility], [facility] Medical History Generalized anxiety disorder Obesity (BMI 30-39.9) Physical exam Family History Mother No problems noted. Social History Housing: Apartment Alcohol intake: current Patient Tobacco Use Status: Former Tobacco user Tobacco use type: Cigarette Years Smoked: quit 2020 e-Cigarette/Vaping Use: Never Used Second Hand Smoke Exposure: No Current occupational status: unemployed Cognitive needs: No Hearing needs: No Vision needs: No Female Reproductive History Menstrual control method: none Total pregnancies: 2 Full term: 2 Questionnaire PHQ-9 Over the last 2 weeks, how often have you been bothered by any of the following problems? 1. Little interest or pleasure in doing things: several days 2. Feeling down, depressed, or hopeless: several days 3. Trouble falling or staying asleep, or sleeping too much: not at all 4. Feeling tired or having little energy: not at all 5. Poor appetite or overeating: not at all 6. Feeling bad about yourself - or that you are a failure or have let yourself or your family down: not at all 7. Trouble concentrating on things, such as reading the newspaper or watching television: not at all 8. Moving or speaking so slowly that other people could have noticed. Or the opposite - being so fidgety or restless that you have been moving around a lot more than usual: not at all 9. Thoughts that you would be better off or of hurting yourself in some way: not at all Total score: 2 Depression Screening Interpretation: Positive Depression Screening Follow-up: Existing condition and In treatment Depression Screening Done: Yes 45753 - PHQ-9 Billing: Yes Source: Developed by Drs. Saurabh Daniels, Abi Guerra, David Parada and colleagues, with an educational ricci from [employer]. Thrive Questionnaire Date Thrive assessed: 02/18/24 I am a: Patient What is your living situation today?: I have a steady place to live Within the past 12 months, did the food you bought not last and you didn't have the money to get more?: Sometimes True Within the past 12 months, did you worry whether your food would run out before you got money to buy more?: I choose not to answer this question Do you have trouble paying for medicines?: No Do you have trouble getting transportation to medical appointments?: No Do you have trouble paying your heating and electricity bill?: No Do you have trouble taking care of your child, family member or friend?: No Do you have trouble with day-to-day activities such as bathing, preparing meals, shopping, managing finances, etc.?: No Are you currently unemployed and looking for a job?: No Are you interested in more education?: No Please select the resources that you would like help with: None Currently or been in a relationship where the following occur: I choose not to answer THRIVE Score: 1 AUDIT C Alcohol Use Questionnaire (AUDIT-C) 1. How often do you have a drink containing alcohol?: Never Total Score: 0 BEN-7 AMB Questionnaire BEN-7 Date BEN - 7 assessed: 03/21/24 Feeling nervous, anxious, or on edge: 0 = Not at all Not being able to stop or control worryin = Not at all Worrying too much about different things: 0 = Not at all Trouble relaxin = Not at all Being so restless that it is hard to sit still: 0 = Not at all Becoming easily annoyed or irritable: 0 = Not at all Feeling afraid as if something awful might happen: 0 = Not at all Total BEN-7 score (0-4 normal; 5-9 mild; 10-14 moderate; 15-21 severe): 0 Source: Developed by Drs. Saurabh Daniels, Abi Guerra, David Parada and colleagues, with an educational ricci from [employer]. Review of Systems Const Denies body aches, Denies fatigue, Denies fever(s), Denies frequent falls, Denies headache(s) and Denies weakness Eyes Reports no additional complaints and Denies change in vision ENT Denies dysphagia, Denies dizziness, Denies facial pain, Denies headache(s), Denies nasal congestion and Denies odynophagia Card Denies chest pain, Denies syncope, Denies irregular heart rhythm, Denies leg edema, Denies lightheadedness and Denies dyspnea Resp Denies cough and Denies dyspnea GI Denies abdominal pain, Denies constipation, Denies dysphagia, Denies dyspepsia, Denies diarrhea, Denies nausea, Denies odynophagia and Denies vomiting Denies urinary frequency, Denies dysuria, Denies urinary hesitancy and Denies urinary urgency Musc Denies back pain and Denies myalgias Skin/Breast Reports system reviewed and no additional complaints, except as documented Neuro Denies dizziness, Denies syncope, Denies frequent falls, Denies headache(s) and Denies weakness Psych Reports no additional complaints Endo Denies fatigue Physical exam (Primary Care) Vital Signs: Last Vital Signs Pulse 72 03/21/24 15:25 BP 124/68 03/21/24 15:25 Pulse Ox 97 03/21/24 15:25 Oxygen Delivery Method Room Air 03/21/24 15:25 BMI result Body Mass Index 35.3 BMI Assessment/Plan discussion: High BMI High, discussed plan: lifestyle, dietary, physical activity and alcohol moderation Tobacco/Smoking Status: Tobacco use Status Tobacco use date assessed 02/18/24 03/21/24 15:28 Patient Tobacco Use Status Former Tobacco user 03/21/24 15:28 Tobacco use type Cigarette 03/21/24 15:28 e-Cigarette/Vaping Use Never Used 03/21/24 15:28 PHQ-9: PHQ-9 Score PHQ-9: Total score 2 03/21/24 15:29 Depression Screening Interpretation: Positive Depression Screening Follow-up: Existing condition and In treatment Thrive Assessment: Date of Thrive Assessment Date Thrive assessed 02/18/24 03/21/24 15:28 Currently or been in a relationship where the following occur: I choose not to answer Const General: cooperative, healthy appearing, comfortable and no acute distress Orientation/consciousness: patient oriented x3 HENMT Head: Yes normocephalic Ears: hearing grossly normal bilaterally, external ears normal, TM's normal bilaterally and EAC's normal General nose exam: Normal external nose present Face and sinus: Yes normal facial exam and Yes sinuses nontender Mouth: Normal oral and palatal mucosa present and tongue normal Throat: Yes posterior oropharynx normal Eyes General: appearance normal, both eyes and all related structures Conjunctivae: conjunctivae normal Pupils: Equal, round and reactive pupils present EOM: EOMs intact bilaterally and No Nystagmus present Neck Neck: Yes normal visual inspection, Yes full ROM and Yes no lymphadenopathy Chest Chest palpation & inspection: normal inspection of the chest Resp Effort & Inspection: normal respiratory effort Auscultation: clear to auscultation bilaterally, no crackles, no rales, no rhonchi, no wheezes and breath sounds present Cardio Rate: regular rate Rhythm: regular rhythm Peripheral pulses: radial pulses present and dorsalis pedis present GI Inspection: Yes normal to inspection and No Abdominal wall edema Palpation (GI): Soft to palpation, not firm and nontender Auscultation: normal bowel sounds Rectal Exam - Female: deferred General: Yes no CVA tenderness Back/Spine/Pelvis Back: no CVA tenderness Skin General skin exam: no rashes or lesions noted Neuro General: patient oriented x3 Cranial nerves: Yes Equal, round and reactive pupils present, Yes Midline tongue present, Yes Ability to bilaterally elevate shoulders present and No Nystagmus present Gait exam (Neuro): Normal gait present Extrem General: Yes normal to inspection, Yes full ROM, No no pedal edema and No edema Psych Speech and movement: Normal speech and movement present Affect: normal affect Insight: Good insight present (Psych) Judgement: Good judgement present (Psych) Assessment and Plan Assessment & Plan (1) Alcohol abuse: Code(s): F10.10 - Alcohol abuse, uncomplicated Plan: Patient states she has been abstinent from alcohol for around 3 weeks now and has been using naltrexone almost daily for her cravings with good relief. She would like to continue using naltrexone at this time. Denies any symptoms of withdrawal and is taking thiamine and magnesium daily. Continue to follow with psychiatry. (2) Major depressive disorder, recurrent episode with anxious distress: Code(s): F33.9 - Major depressive disorder, recurrent, unspecified Plan: Patient is currently on Lexapro and has been doing well on this medication. She mentions her depression and anxiety is significantly improved and she mentions a better mental state and is feeling more like herself. Continue to follow with psychiatry. (3) Generalized anxiety disorder: Code(s): F41.1 - Generalized anxiety disorder Plan: Patient is currently on Lexapro and has been doing well on this medication. She mentions her depression and anxiety is significantly improved and she mentions a better mental state and is feeling more like herself. Continue to follow with psychiatry. Follow up in 6 months for review of medication. (4) GERD (gastroesophageal reflux disease): Code(s): K21.9 - Gastro-esophageal reflux disease without esophagitis Plan: GERD symptoms have been well controlled on famotidine daily. Avoid trigger foods such as citrus, tomato products, soda, caffeine, spicy foods and other foods that may be irritating to your stomach. Avoid laying flat 3-4 hours after eating and elevate the head of the bed 30 degrees to prevent acid from moving into the esophagus. (5) Fatty liver: Code(s): K76.0 - Fatty (change of) liver, not elsewhere classified Plan: Patient was found to have fatty liver on abdominal ultrasound. She did have a noted 10 lb weight loss since her last appointment due to healthy diet and regular exercise. Continue with current regimen and can consider nutritional referral at patient request. (6) Annual physical exam: Code(s): Z00.00 - Encounter for general adult medical examination without abnormal findings Plan: Patient is up-to-date on all routine screenings and vaccinations for her age. She follows with [facility] gynecology for routine Pap smears and has her next 1 scheduled for this week. She believes she is up-to-date on her tetanus vaccine. Blood work is updated we will follow up in 6 months. Plan We will follow up in 6 months for review of her psychiatric medications or sooner if new problems arise or advised by psychiatric clinic. This note was constructed using voice recognition software. While every effort has been made to ensure accuracy and sheepskin pickler, still areas may have been included sometimes these areas may affect the content or meeting of the given symptoms. Total time spent caring for the patient today was 30 minutes. This includes time spent before the visit reviewing the chart, time spent during the visit, and time spent after the visit and documentation. Medications: Refilled naltrexone 50 mg PO DAILY 30 tabs 0RF Coding Level of Care Code Est Pt Prev Care 18-39y(15545) Diagnoses Alcohol abuse F10.10 Major depressive disorder, recurrent episode with anxious distress F33.9 Generalized anxiety disorder F41.1 GERD (gastroesophageal reflux disease) K21.9 Fatty liver K76.0 Annual physical exam Z00.00
== END 2024-03-21 15:57 | disposition home or self-care (01) ==
PROVIDERS: PCP Internal Medicine
DX: Z00.00 Encounter for general adult medical examination without abnormal findings (principal); F10.10 Alcohol abuse, uncomplicated; F33.9 Major depressive disorder, recurrent, unspecified; F41.1 Generalized anxiety disorder; K21.9 Gastro-esophageal reflux disease without esophagitis; K76.0 Fatty (change of) liver, not elsewhere classified

== ENCOUNTER → 2024-03-21 15:23 | Outpatient (BNVA) | payer OTHER, SELFPAY | PROVIDERS: PCP Internal Medicine | DX: Z00.01 Encounter for general adult medical examination with abnormal findings (principal); F10.10 Alcohol abuse, uncomplicated; F33.9 Major depressive disorder, recurrent, unspecified; F41.1 Generalized anxiety disorder; K21.9 Gastro-esophageal reflux disease without esophagitis; K76.0 Fatty (change of) liver, not elsewhere classified | CPT/HCPCS: 96127; 99395 ==

== ENCOUNTER 2024-05-11 14:59 | Outpatient (REF) | payer OTHER, SELFPAY ==
[2024-05-12 11:28] LABS: Influenza A PCR NEGATIVE (Negative); Influenza B PCR NEGATIVE (Negative); Resp Syncy Virus RNA Qual PCR POSITIVE (Negative); SARS COV2 PCR INHOUSE NEGATIVE (Negative)
== END 2024-05-11 15:00 | disposition home or self-care (01) ==
LOC: HO.LNP 14:59
PROVIDERS: PCP Internal Medicine; Visit Provider Registered Nurse
DX: J06.9 Acute upper respiratory infection, unspecified (principal)
CPT/HCPCS: 0241U; 94640; 99212

== ENCOUNTER → 2024-05-11 14:59 | Outpatient (AMB) | payer OTHER, SELFPAY ==
--- NOTE | 2024-05-11 15:09 | AM.OFFWIN_ITS ---
Intake Vital Signs 05/11/24 15:16 Weight 170 lb 8 oz BP 120/78 Blood Pressure Location Rt brachial Position Sitting Pulse 106 H Pulse Source Pulse Oximeter Temp 98.9 F Temp Source Oral Pulse Oximetry (%) 98 Oxygen Delivery Method Room Air Intake Visit Reasons: EP- Fever, coughing, congestion, body aches Intake Note: Patient here for difficulty breathing, fevers, body aches, fevers and cough. Took Ibuprofen about 1 hr ago. Patient Tobacco Use Status: Former Tobacco user Allergies sulfamethoxazole [From Bactrim] Allergy (Mild, Verified 05/11/24 15:10) hives trimethoprim [From Bactrim] Allergy (Mild, Verified 05/11/24 15:10) hives Do you need a note to return to daycare/school/sports/work: Yes HPI EP- Fever, coughing, congestion, body aches HPI Details This note is constructed using voice recognition software. While every effort has been made to ensure accuracy, geothermal electrical engineer errors may have been included. The patient is a 33 year old female who presents to the clinic today with cough, congestion, body aches, fever since yesterday. She notes that she has recently been diagnosed with likely asthma, and prescribed an albuterol inhaler. She has been taking that multiple times since onset of symptoms, however this has not seem to be helping her. She is nearly out of her inhaler, and does not have a refill available to her. 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 She did try to go to work today, but was sent home due to being sick. She took ibuprofen an hour ago, and feels that that has helped some of the body aches and fever. [facility] Medical History Generalized anxiety disorder Obesity (BMI 30-39.9) Physical exam Family History Mother No problems noted. Social History Housing: Apartment Alcohol intake: current Patient Tobacco Use Status: Former Tobacco user Tobacco use type: Cigarette Years Smoked: quit 2020 e-Cigarette/Vaping Use: Never Used Second Hand Smoke Exposure: No Current occupational status: unemployed Cognitive needs: No Hearing needs: No Vision needs: No Review of Systems Const All systems reviewed & are unremarkable except as noted in HPI and below Physical Exam Vital Signs: Last Vital Signs Temp 98.9 F 05/11/24 15:16 Pulse 106 H 05/11/24 15:16 BP 120/78 05/11/24 15:16 Pulse Ox 98 05/11/24 15:16 Oxygen Delivery Method Room Air 05/11/24 15:16 Const General: cooperative, healthy appearing, comfortable and no acute distress Orientation/consciousness: patient oriented x3 Limitations: no limitations HEENT Head: Yes normal to inspection Ears: hearing grossly normal bilaterally, external ears normal and TM's normal bilaterally General nose exam: Normal external nose present, Normal nares present and No nasal discharge present Face and sinus: Yes normal facial exam and Yes sinuses nontender Mouth: Normal oral and palatal mucosa present and moist mucous membranes Throat: Yes tonsils normal, Yes uvula midline and Yes posterior oropharynx abnormal (Erythema) Eyes General: appearance normal, both eyes and all related structures Neck Neck: Yes normal visual inspection Resp Effort & Inspection: normal respiratory effort, able to speak in complete sentences, Actively coughing, no respiratory distress, not tachypneic, no tripod positioning and no use of accessory muscles Auscultation: clear to auscultation bilaterally (But tight sound) Cardio Jugular venous distension: no JVD Rate: regular rate Rhythm: regular rhythm Heart sounds: S1 normal heart sound present, S2 normal heart sound present, no click, no gallops, no murmurs and no rubs Skin General skin exam: no rashes or lesions noted, elasticity normal and turgor n ormal Neuro General: patient oriented x3 Extrem General: Yes normal to inspection and Yes no clubbing, cyanosis or edema Office Procedures Nebulizer Treatment Nebulizer Treatment [id number] RX initial, or Nebulizer Subsequent Treatment Office Meds albuterol sulfate 2.5 mg/3 mL (0.083 %) solution for nebulization Performing Provider: Petra Gold NP Performing Location: [facility] Administered by: Petra Gold NP on 05/11/24 15:27 Dose Route Admin Location Dispensed Lot Number Expiration Date [facility] [employer] Supervisor 2.5 mg inhalation inhale 3 mL [id number] 02/03/25 6612-4546-25 [facility] Assessment & Plan Assessment & Plan (1) URI (upper respiratory infection): Code(s): J06.9 - Acute upper respiratory infection, unspecified Qualifiers: URI type: unspecified URI Qualified Code(s): J06.9 - Acute upper respiratory infection, unspecified Plan: Viral swab obtained to rule out Covid based on symptoms. Advised mask wearing while symptomatic and quarantine per current CDC guidelines. Reviewed at home support methods including hydration, humidification, vix vapor rub, sinus rinse. She responded well to albuterol nebulizer treatment with less tight sounding lungs, and feeling like she could breathe better. Discussed treating respiratory with prednisone with taper for improvement in asthmatic symptoms, refill albuterol inhaler. Additionally we provided benzonatate for supportive cough. Advised follow up with worsening symptoms such as dyspnea at rest, which would require emergent evaluation. Plan See above for full details and plan. Orders: Orders AMB Nebulizer Treatment Today J06.9 - Acute upper respiratory infection, unspecified SARS-CoV2/FLU/RSV Today J06.9 - Acute upper respiratory infection, unspecified Medications: New prednisone 5 tablets daily for 2 days, then 4 tablets daily for 2 days, then 3 tablets daily for 2 days, then 2 tablets daily for 2 days, then 1 tablet daily for 2 days. 10 mg PO DIRECTED 30 tabs 0RF benzonatate 100 mg PO TID 5 days PRN 15 caps 0RF Cough Refilled albuterol sulfate 90 mcg/actuation 1 inh inhalation QID PRN 6.7 grams 1RF shortness of breath or wheezing Coding Level of Care Code Est Pt Level 3 (20015) Diagnoses Upper respiratory tract infection, unspecified type J06.9 URI type: unspecified URI CPT Codes Nebulizer Treatment - Nebulizer Treatment, initial or subsequent: 01724- Nebulizer/MDI RX initial, or Nebulizer Subsequent Treatment ([id number])
[2024-05-11 15:16] VITALS: BP 120/78; PULSE 106; TEMP 37.2; O2SAT 98
== END ==
PROVIDERS: PCP Internal Medicine; Visit Provider Registered Nurse
DX: J06.9 Acute upper respiratory infection, unspecified (principal)

== ENCOUNTER 2024-05-23 11:02 | Outpatient (AMB) | payer OTHER, SELFPAY ==
--- NOTE | 2024-05-23 11:24 | MHC.OFFVISPS ---
Intake Intake Visit Reasons: f/u consultation Plate Straightener Required: No Allergies sulfamethoxazole [From Bactrim] Allergy (Mild, Verified 05/11/24 15:10) hives trimethoprim [From Bactrim] Allergy (Mild, Verified 05/11/24 15:10) hives Medication List - Last Reconciled 05/23/24 by Huyen Ulrich APRN albuterol sulfate 90 mcg/actuation 1 inh inhalation QID PRN benzonatate 100 mg PO TID PRN 5 days dextroamphetamine-amphetamine 5 mg ER (Adderall XR) 5 mg PO QAM escitalopram oxalate (Lexapro) 20 mg PO DAILY famotidine (Heartburn Relief (famotidine)) 10 mg PO DAILY magnesium glycinate 100 mg PO BID naltrexone 50 mg PO DAILY ondansetron 4 mg PO Q8H 4 days prednisone 10 mg PO DIRECTED thiamine HCl (vitamin B1) 100 mg PO DAILY HPI- Psychiatric Chief Complaint: f/u consultation HPI Narrative: pt reports much improvement; reports mood better; was dolly to stop using etoh while on naltrexone. she reports a 20+ pound weight loss in several months due ot decrease alcohol use. she is happy; she continues to have ADHD symptoms and scores 18 on ADHD self report scale which indicates very likely ADHD (anything above 13) NO SI or HI Past Psychiatric History: brief therapy as child; trials of clonazepam age 19 and sertraline after sons born but made her heart race. No IPLOC Subjective Subjective Subjective Medication Compliance: Yes Side effects from medications: No Review of Systems Medical Review of Systems: unchanged Mental Status Exam Mental Status Exam Patient Appearance: Well Grooomed Patient Orientation: Person, Place, Time and Situation Level of Consciousness: Awake and Appropriate Patient Behavior: Appropriate and Cooperative Mood Description: Happy Affect Description: Happy Patient Cognition Impaired: No Ability to Follow Directions: Good Speech Pattern: Clear Memory Description: Intact Hallucinations: None Delusions: Not Present Thought Process: Intact and Distracted Thought Content: positive for Intact Judgement: Fair Assessment and Plan Assessment & Plan (1) Alcohol abuse: Status: Acute Code(s): F10.10 - Alcohol abuse, uncomplicated (2) Major depressive disorder, recurrent episode with anxious distress: Status: Acute Code(s): F33.9 - Major depressive disorder, recurrent, unspecified (3) Generalized anxiety disorder: Status: Acute Code(s): F41.1 - Generalized anxiety disorder (4) ADHD (attention deficit hyperactivity disorder), combined type: Status: Acute Code(s): F90.2 - Attention-deficit hyperactivity disorder, combined type Plan increase lexapro to 20mg daily continue naltrexone 50 mg daily start adderall XR 5mg one in am daily Medications: New escitalopram oxalate (Lexapro) 20 mg PO DAILY 90 tabs 1RF dextroamphetamine-amphetamine 5 mg ER (Adderall XR) Partial Fill upon patient request. 5 mg PO QAM 30 caps 0RF Refilled naltrexone 50 mg PO DAILY 30 tabs 3RF Discontinued escitalopram oxalate (Lexapro) Discontinued Reason: Doctor's Order 10 mg PO DAILY 90 tabs 1RF Counseling and coordination of Care Pt. Self Management counseling: Maintenance-social rhythm, Mod caffeine/ETOH intake, Sleep hygiene, Behavior activation and General coping skills Medication management counseling: Effectiveness, Side effects, Dosing range, Duration, Drug interaction and Adherence Diagnosis and Prognosis Counseling: Accuracy of diagnosis, Prognosis over time, Impact of diagnosis on life functions, Impact of family relationship, Problematic behaviors secondary to diagnosis and Adequacy of current interventions Details: I spent [40] minutes reviewing the record, seeing the patient and documenting in the medical record. Counseling provided to the patient/caregiver as outlined below. Addressed patient/caregiver concerns regarding current medication regime including effective adherence. Addressed patient/caregiver concerns regarding diagnosis and prognosis including accuracy of diagnosis, prognosis over time, impact of diagnosis. Addressed patient/caregiver concerns regarding impact of recent stressors. [facility] Medical History Generalized anxiety disorder Obesity (BMI 30-39.9) Physical exam Family History Mother No problems noted. Social History Housing: Apartment Alcohol intake: current Patient Tobacco Use Status: Former Tobacco user Tobacco use type: Cigarette Years Smoked: quit 2020 e-Cigarette/Vaping Use: Never Used Second Hand Smoke Exposure: No Current occupational status: unemployed Cognitive needs: No Hearing needs: No Vision needs: No Social History: lives with partner ans 2 children age 3 and 2; 3 yo is autistic. 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 Substance History: etoh daily 2 drinks at night Trauma History: yes Coding Level of Care Code Est Pt Level 4 (24717) Diagnoses Alcohol abuse F10.10 Major depressive disorder, recurrent episode with anxious distress F33.9 Generalized anxiety disorder F41.1 ADHD (attention deficit hyperactivity disorder), combined type F90.2
== END 2024-05-23 11:26 | disposition home or self-care (01) ==
LOC: HO.HOP 11:02
PROVIDERS: PCP Internal Medicine; Visit Provider Clinical Nurse Specialist Psychiatric/Mental Health
DX: F10.10 Alcohol abuse, uncomplicated (principal); F33.9 Major depressive disorder, recurrent, unspecified; F41.1 Generalized anxiety disorder; F90.2 Attention-deficit hyperactivity disorder, combined type
CPT/HCPCS: 99214

== ENCOUNTER → 2024-05-23 11:02 | Outpatient (BNVA) | payer OTHER, SELFPAY | PROVIDERS: PCP Internal Medicine; Visit Provider Clinical Nurse Specialist Psychiatric/Mental Health | DX: F33.9 Major depressive disorder, recurrent, unspecified (principal); F41.1 Generalized anxiety disorder; F90.2 Attention-deficit hyperactivity disorder, combined type; F10.10 Alcohol abuse, uncomplicated; Z79.899 Other long term (current) drug therapy | CPT/HCPCS: 99212 ==

== ENCOUNTER 2024-08-05 15:50 | Outpatient (AMB) | payer OTHER, SELFPAY ==
--- NOTE | 2024-08-05 16:03 | A.OFFPC_ITS ---
Intake Visit Reasons: Medication review. Sports Book Writer Required: No Information Interpreted: non-clinical & clinical Thinner Sprayer: Not Required per policy Accompanied by: Self / Same As Patient Allergies sulfamethoxazole [From Bactrim] Allergy (Mild, Verified 08/05/24 16:05) hives trimethoprim [From Bactrim] Allergy (Mild, Verified 08/05/24 16:05) hives Tobacco use date assessed: 08/05/24 Dental Screening Dental Screen Date: 03/21/24 HPI Medication review. HPI0 Details The patient is a 33-year-old female presenting with concerns regarding her current medication regimen and the results of recent blood work. The patient has a history of hypercholesterolemia, which was previously addressed without the necessity for a detailed discussion noted in past visits. She continues to manage hypertension, which has been a longstanding issue, discussed by both myself and Dr. Bustamante. The patient's blood pressure has been elevated for years. She acknowledges making lifestyle changes to address this. Recently, liver function tests indicated elevated enzymes, and an ultrasound confirmed the presence of non-alcoholic fatty liver disease. The condition was communicated to her post-weight loss of 40 pounds. Additionally, she has been managing depression with the use of Lexapro, which she identifies as significantly beneficial. ADHD is also a diagnosed condition, and she uses Adderall, which mandates in-office visits every three months. The patient missed appointments recently due to transportation issues. - Psychiatric: Reports recent depressive episodes. - General: Reports significant weight lo ss of 40 pounds. - Endocrine: Denies fasting during recen t blood work; reports intention to monitor dietary sugar intake. [facility] Medical History Generalized anxiety disorder Obesity (BMI 30-39.9) Physical exam Family History Mother No problems noted. Social History Housing: Apartment Alcohol intake: current Patient Tobacco Use Status: Former Tobacco user Tobacco use type: Cigarette Years Smoked: quit 2020 e-Cigarette/Vaping Use: Never Used Second Hand Smoke Exposure: No Current occupational status: unemployed Cognitive needs: No Hearing needs: No Vision needs: No Questionnaire PHQ-9 Over the last 2 weeks, how often have you been bothered by any of the following problems? 1. Little interest or pleasure in doing things: nearly every day 2. Feeling down, depressed, or hopeless: more than half the days 3. Trouble falling or staying asleep, or sleeping too much: nearly every day 4. Feeling tired or having little energy: more than half the days 5. Poor appetite or overeating: more than half the days 6. Feeling bad about yourself - or that you are a failure or have let yourself or your family down: more than half the days 7. Trouble concentrating on things, such as reading the newspaper or watching television: nearly every day 8. Moving or speaking so slowly that other people could have noticed. Or the opposite - being so fidgety or restless that you have been moving around a lot more than usual: more than half the days 9. Thoughts that you would be better off or of hurting yourself in some way: not at all Total score: 19 23599 - PHQ-9 Billing: Yes Source: Developed by Drs. Saurabh Daniels, Abi Guerra, David Parada and colleagues, with an educational ricci from [employer]. Thrive Questionnaire Date Thrive assessed: 08/05/24 I am a: Patient What is your living situation today?: I have a steady place to live Within the past 12 months, did the food you bought not last and you didn't have the money to get more?: Never true Within the past 12 months, did you worry whether your food would run out before you got money to buy more?: Never true Do you have trouble paying for medicines?: No Do you have trouble getting transportation to medical appointments?: No Do you have trouble paying your heating and electricity bill?: No Do you have trouble taking care of your child, family member or friend?: No Do you have trouble with day-to-day activities such as bathing, preparing meals, shopping, managing finances, etc.?: No Are you currently unemployed and looking for a job?: No Are you interested in more education?: No Please select the resources that you would like help with: None Currently or been in a relationship where the following occur: No concerns reported THRIVE Score: 0 AUDIT C Alcohol Use Questionnaire (AUDIT-C) 1. How often do you have a drink containing alcohol?: Monthly or less 2. How many drinks containing alcohol do you have on a typical day when you are drinking?: 1 or 2 3. How often do you have six or more drinks on one occasion?: Never Total Score: 1 BEN-7 AMB Questionnaire BEN-7 Date BEN - 7 assessed: 08/05/24 Feeling nervous, anxious, or on edge: 3 = Nearly every day Not being able to stop or control worryin = More than half the days Worrying too much about different things: 2 = More than half the days Trouble relaxin = More than half the days Being so restless that it is hard to sit still: 2 = More than half the days Becoming easily annoyed or irritable: 3 = Nearly every day Feeling afraid as if something awful might happen: 2 = More than half the days Total BEN-7 score (0-4 normal; 5-9 mild; 10-14 moderate; 15-21 severe): 16 Source: Developed by Drs. Saurabh Daniels, Abi Guerra, David Parada and colleagues, with an educational ricci from [employer]. BEN-7 Assessment Billing BEN-7 Assessment Tool: BEN-7 Assessment 63622 Physical exam (Primary Care) Tobacco/Smoking Status: Tobacco use Status Tobacco use date assessed 08/05/24 08/05/24 16:07 Patient Tobacco Use Status Former Tobacco user 08/05/24 16:06 Tobacco use type Cigarette 08/05/24 16:06 e-Cigarette/Vaping Use Never Used 08/05/24 16:06 PHQ-9: PHQ-9 Score PHQ-9: Total score 19 08/05/24 16:51 Thrive Assessment: Date of Thrive Assessment Date Thrive assessed 08/05/24 08/05/24 16:06 Currently or been in a relationship where the following occur: No concerns reported Telehealth Telehealth Telehealth Platform: Telephone Location of provider rendering services: practice address Location of patient: address on file Patient Identification confirmed using: Name, : Yes Telehealth method: voice only Patient verbally consented to treatment: Yes Patient verbally consented to billing insurance company: Yes Patient informed of any privacy concerns related to visit: Yes Coding Level of Care Code Tele Est Pt Level 4 (48871) Diagnoses Fatty liver K76.0 Alcohol abuse F10.10 Major depressive disorder, recurrent episode with anxious distress F33.9 Additional Codes BEN-7 Assessment Billing - BEN-7 Assessment Tool: BEN-7 Assessment 66397 ([id number]) PHQ-9 - 83561 - PHQ-9 Billing: Yes ([id number]) Assessment & Plan Assessment & Plan (1) Fatty liver: Code(s): K76.0 - Fatty (change of) liver, not elsewhere classified Category: Medical Plan: stop drinking alcohol 03/2024 and lost 40 lbs (2) Alcohol abuse: Code(s): F10.10 - Alcohol abuse, uncomplicated Category: Social Hx (3) Major depressive disorder, recurrent episode with anxious distress: Code(s): F33.9 - Major depressive disorder, recurrent, unspecified Category: Medical Plan - Medication refills for Lexapro and Adderall were confirmed as necessary for continued mental health management. - Continue monitoring of liver enzymes and manage fatty liver through lifestyle and dietary modifications. - Monitor blood pressure regularly and maintain lifestyle changes to manage hypertension. - Future lab work should be performed in a fasting state to accurately assess glycemic levels. I discussed at length with the patient her medication plan, emphasizing the importance of routine follow-ups, particularly given her use of Adderall, which necessitates office visits every three months. The recent findings of a fatty liver were linked to her past liver enzyme test results and ultrasound findings. I acknowledged her impressive weight loss, which is a crucial step in managing her liver condition and informed her about the benefits it brings to her overall health management. We reviewed her recent blood work and noted the importance of fasting for future labs to ensure accurate assessment of blood sugar levels. I also advised on maintaining current lifestyle changes to manage hypertension effectively. We will continue to provide psychological support to aid her in handling depression, and I confirmed sending medication prescriptions to her preferred pharmacy. - Continue current medications as prescribed: Lexapro and Adderall. - Schedule and attend follow-up appointments, especially pertaining to Adderall management. - Maintain lifestyle changes that support weight loss and control of hypertension. - Plan future lab work tests in a fasting state. - Monitor blood pressure at home and contact the office if readings remain elevated. - Seek support for depression and adhere to the prescribed medication regimen. - Visit the pharmacy on [address] to grain picker refill prescriptions. Medications: Refilled dextroamphetamine-amphetamine 5 mg (Adderall) Partial Fill upon patient request. 5 mg PO DAILY 30 tabs 0RF escitalopram oxalate (Lexapro) 20 mg PO DAILY 90 tabs 1RF
== END 2024-08-05 17:27 | disposition home or self-care (01) ==
LOC: HO.HMCH 15:50
PROVIDERS: PCP Internal Medicine; Visit Provider Internal Medicine
DX: K76.0 Fatty (change of) liver, not elsewhere classified (principal); F10.10 Alcohol abuse, uncomplicated; F33.9 Major depressive disorder, recurrent, unspecified

== ENCOUNTER → 2024-08-05 15:50 | Outpatient (BNVA) | payer OTHER, SELFPAY | PROVIDERS: PCP Internal Medicine; Visit Provider Internal Medicine | DX: K76.0 Fatty (change of) liver, not elsewhere classified (principal); F10.10 Alcohol abuse, uncomplicated; F33.9 Major depressive disorder, recurrent, unspecified | CPT/HCPCS: 96127 ==